=== PATIENT | male | born 1995 | race Hispanic/Latino ===

== ENCOUNTER 2020-05-02 19:49 | Observation (INO) | payer OTHER, SELFPAY ==
[~2020-05-02 19:49] MED LIST: Iopamidol-370 76% 500 ML 1 ML ONE
[2020-05-02 20:13] LABS: #Lymphocytes 0.8 thou/uL (1.20-3.40); #Monocytes 0.5 thou/uL (0.11-0.59); #Neutrophils 13.4 thou/uL (1.40-6.50); %Basophils 0.2 % (0.0-1.0); %Eosinophils 0.2 % (0.0-10.0); %Lymphocytes 5.4 % (21.0-51.0); %Monocytes 3.6 % (0.0-10.0); %Neutrophils 90.6 % (42.0-75.0); Hemoglobin 15.3 g/dL (14.0-18.0); Mean Corpuscular HGB CONC 32.9 g/dL (32.0-36.0); Mean Corpuscular Hemoglobin 28.3 pg (27.0-31.0); Mean Corpuscular Volume 86.1 fL (78.0-98.0); Mean Platelet Volume 7.7 fL (7.4-10.4); Platelet Count 267 thou/uL (130-400); RBC Distribution Width 11.9 % (11.5-14.5); Red Blood Cell (RBC) Count 5.39 mill/uL (4.70-6.10); White Blood Cell (WBC) Count 14.8 thou/uL (4.8-10.8)
[2020-05-02] MEDS ORDERED: Ondansetron ODT 8 MG TAB ONE (20:13)
[2020-05-02 20:32] LABS: ALT (SGPT) 21 U/L (8-55); AST (SGOT) 18 U/L (5-34); Albumin 4.8 g/dL (3.5-5.0); Alkaline Phosphatase 115 U/L (40-110); Anion Gap 13 mmol/L (10-20); BUN (Urea Nitrogen) 14 mg/dL (8.9-20.6); Bilirubin, Total 0.4 mg/dL (0.2-1.2); Calc. Creatinine Clearance 0 mL/min (70-130); Calcium 9.7 mg/dL (7.8-10.44); Carbon Dioxide 24 mmol/L (22-29); Chloride 101 mmol/L (98-107); Estimated GFR-MDRD Greater than 90; Globulin 3.4 g/dL (2.4-3.5); Glucose 127 mg/dL (70-105); Lipase 7 U/L (8-78); Potassium 3.9 mmol/L (3.5-5.1); Protein, Total 8.2 g/dL (6.0-8.3); Sodium 134 mmol/L (136-145)
--- NOTE | 2020-05-02 21:37 | CT ---
CT ABDOMEN AND PELVIS WITH IV CONTRAST: 05/02/20 HISTORY: Nausea and vomiting with generalized abdominal cramping. COMPARISON: None. FINDINGS: There is mild dependent atelectasis. The liver, spleen, pancreas, bilateral adrenal glands, kidneys, abdominal aorta and urinary bladder d emonstrate a normal CT appearance. A few scattered colonic diverticula are seen. Loops of small bowel are normal in caliber. The appendix is dilated and fluid-filled. The appendix measures 9 mm in diameter. There is minimal ad jacent periappendiceal inflammatory changes. Findings are thought to be related to early acute append icitis. There is increased number of lymph nodes in the right lower quadrant probably reactive in origin. No free fluid, fluid collection, or free intraperitoneal gas is seen in the abdomen or pelvis. Incidental note is made of a retroaortic left renal vein. IMPRESSION: 1. Evidence of early acute appendicitis. 2. Above findings discussed with Dr. Gordillo in the Emergency Department on 05/02/2020 at [address] [facility] [address]. POS: ALYSSA
[2020-05-02] MEDS ORDERED: Piperacillin/Tazobactam 3.375 GM VIAL ONE (22:04)
[2020-05-02] MEDS ORDERED: Midazolam HCl 2 mg/2 ml Vial ONE (22:05)
[2020-05-02] MEDS ORDERED: Fentanyl 100 MCG/2 ML VIAL ONE (22:05)
[2020-05-02 22:25] LABS: Bilirubin Negative (Negative); Blood, Urine Negative (Negative); Clarity Clear (Clear); Glucose, Urine (Dipstick) Normal (Negative); Ketone, Urine Negative (Negative); Leukocyte Negative Leu/uL (Negative); Nitrite Negative (Negative); Protein, Urine (Dipstick) 10 mg/dL (Neg-Trace); Urobilinogen Normal mg/dL (Less than 2)
[2020-05-02] MEDS ORDERED: Morphine 2 MG/ML SYRINGE ONE (23:16)
[2020-05-03] MEDS ORDERED: Ondansetron ODT 4 MG TAB SL PRN (00:06)
[2020-05-03] MEDS ORDERED: Ondansetron PF 4 MG/2 ML Vial IVP PRN (00:06)
[2020-05-03] MEDS ORDERED: Morphine 2 MG/ML VIAL SLOW IVP PRN ×2 (00:10→10:39)
[2020-05-03] MEDS: Sodium Chloride 0.9% 1,000 ML IV SCH ×2 (00:27→10:14)
[2020-05-03] MEDS ORDERED: Piperacillin/Tazobactam 3.375 GM in Sodium Chloride 0.9% 100 ML IVPB SCH ×2 (04:00→16:00)
[2020-05-03] MEDS ORDERED: Bupivacaine 0.25% HCL 30 ML VIAL ONE (08:20)
[2020-05-03] MEDS ORDERED: Lidocaine 1% w/Epinephrine 1:100K 20 ML VIAL ONE (08:20)
[2020-05-03] MEDS ORDERED: Sodium Chloride 0.9% 100 ML ONE (08:35)
[2020-05-03] MEDS ORDERED: Piperacillin/Tazobactam 3.375 GM VIAL ONE (08:35)
[2020-05-03] MEDS ORDERED: Lidocaine 1% PF 5 ML VIAL ONE (09:07)
[2020-05-03] MEDS ORDERED: Ondansetron PF 4 MG/2 ML Vial ONE (09:07)
[2020-05-03] MEDS ORDERED: Dexamethasone 20 MG/5 ML VIAL ONE (09:07)
[2020-05-03] MEDS ORDERED: Succinylcholine Chloride 20 MG/ML 10 ml SYRINGE FS ONE (09:07)
[2020-05-03] MEDS ORDERED: Glycopyrrolate 0.2 MG/ML 5 ML SYRINGE ONE (09:07)
[2020-05-03] MEDS ORDERED: Rocuronium Bromide 10 MG/ML (10ML VIAL) ONE (09:07)
[2020-05-03] MEDS ORDERED: Ketorolac Tromethamine 30 MG/ML VIAL ONE (09:07)
[2020-05-03] MEDS ORDERED: PROPOFOL 200 MG/20 ML VIAL ONE (09:07)
[2020-05-03] MEDS ORDERED: Fentanyl 100 MCG/2 ML VIAL ONE ×2 (09:15→09:52)
--- NOTE | 2020-05-03 09:29 | HP ---
CHIEF COMPLAINT: Abdominal pain. HISTORY OF PRESENT ILLNESS: Mr. Parsons is a 24-year-old man, who presented to the emergency room last night with abdominal pain, which came on around 1:00 in the afternoon. He states that the pain came on fairly rapidly and he threw up what he had eaten and some yellow liquids, but this did not relieve the pain. He states that the pain was all over, but when asked to indicate the point of greatest tenderness, he points to the right of his umbilicus. He denies any fevers or chills. He states that he has had similar episodes in the past, maybe up to 3 times, but none this severe. After receiving pain medication and antibiotics in the emergency room, his pain is better this morning. He states that the only thing that helps was lying very still. No exacerbating factors were identified. PAST MEDICAL HISTORY: None. PAST SURGICAL HISTORY: None. FAMILY HISTORY: None. REVIEW OF SYSTEMS: Ten system review of systems is negative except per HPI. SOCIAL HISTORY: No alcohol, drug, or tobacco use. MEDICATIONS: No medications. ALLERGIES: NO ALLERGIES. PHYSICAL EXAMINATION: VITAL SIGNS: The patient is afebrile with normal vital signs. GENERAL: Reveals a healthy young man, in no acute distress. HEENT: Normal. NECK: Supple without lymphadenopathy or thyroid nodules. He does not have any jaundice or icterus. HEART: Regular in its rate and rhythm without murmurs, rubs, or gallops. LUNGS: Clear to auscultation bilaterally. ABDOMEN: Soft and nondistended. He does not have any palpable masses or hernias. He is tender to palpation more in the right lower quadrant than right upper quadrant and left lower quadrant. He is nontender in the left upper quadrant. He does not exhibit rigidity, rebound, or guarding. EXTREMITIES: Warm and well perfused without edema. NEUROLOGIC: No focal deficits. PSYCHIATRIC: Alert, oriented, and appropriate. He is answering questions through a Divehi process lead. LABORATORY DATA: White count is mildly elevated, but other labs are unremarkable. IMAGING DATA: CT images are reviewed and I agree with the written report. He has a dilated appendix with some periappendiceal stranding, consistent with acute appendicitis. ASSESSMENT: Appendicitis. PLAN: Laparoscopic appendectomy. The patient has received Zosyn and IV fluids and has been n.p.o. since his arrival in the emergency room. The diagnosis and recommended treatment were discussed with him and he wants to proceed with surgery. Inherent risks of surgery were discussed. These include, but are not limited to, bleeding, infection, risks of anesthesia, damage to nearby structures including bowel, bladder, and blood vessels, need for open surgery, and need for additional procedures. He understands and accepts these risks and wishes to proceed. Job ID: [id number]
[2020-05-03] MEDS ORDERED: HYDROcodone/Acetaminophen 5/325 mg Tablet PO PRN ×2 (10:39)
[2020-05-03] MEDS ORDERED: Ibuprofen 800 MG TAB PO PRN (10:39)
[2020-05-03] MEDS ORDERED: Ibuprofen 600 MG TAB PO PRN (10:39)
[2020-05-03] MEDS ORDERED: Acetaminophen 325 MG TAB PO PRN ×2 (10:39)
[2020-05-03] MEDS ORDERED: Morphine 4 MG/ML VIAL SLOW IVP PRN (10:39)
[2020-05-03] MEDS ORDERED: traMADol HCl 50 MG TAB PO PRN ×2 (10:39)
[2020-05-03] MEDS ORDERED: Ibuprofen 200 MG TAB PO PRN (10:39)
[2020-05-03] MEDS ORDERED: D5 1/2 NS w/20 mEq KCL 1,000 ML IV SCH (10:45)
[2020-05-03] MEDS ORDERED: Promethazine HCl 25 MG/ML VIAL SLOW IVP PRN (10:52)
[2020-05-03] MEDS ORDERED: PACU-Morphine 4MG/ML VIAL SLOW IVP PRN (10:52)
[2020-05-03] MEDS ORDERED: Meperidine HCl/PF 25 MG/ML VIAL SLOW IVP PRN (10:52)
[2020-05-03] MEDS ORDERED: Promethazine HCl 25 MG/ML VIAL IM PRN (10:52)
[2020-05-03 11:30] VITALS: TEMP 98.3
[2020-05-03 13:17] LABS: SARS-CoV-2 MS2 Positive; SARS-CoV-2 N Gene Negative; SARS-CoV-2 S Gene Negative; SARS-CoV-2 by NAA Not Detected (NotDetected); SARS-CoV-2 orf1ab Negative
[2020-05-03 13:22] VITALS: BP 104/59
--- NOTE | 2020-05-03 14:12 | PDOC.OP ---
Operative Note - Operative Note Operative Note: PROCEDURE: Laparoscopic appendectomy. SURGEON: Teresa Moody M.D. DATE OF PROCEDURE: 05/03/2020 PREOPERATIVE DIAGNOSIS: Appendicitis. POSTOPERATIVE DIAGNOSIS: Appendicitis. HISTORY: 29-year-old man who presented with signs and symptoms concerning for appendicitis. CT scan showed evidence of acute appendicitis. DESCRIPTION OF PROCEDURE: After informed consent was obtained and appropriate antibiotics continued, the patient was taken to the operating room and placed in the supine position and general endotracheal anesthesia was administered. The bladder was decompressed with a Granger catheter and the abdomen was prepped and draped in the standard sterile fashion. Local anesthesia was infused to the skin and subcutaneous tissues superior to the umbilicus. A transverse skin incision was made and a Veress needle placed into the abdominal cavity and carbon dioxide gas insufflated without difficulty. Opening pressure was less than 5. Carbon dioxide gas was insufflated to an intra-abdominal pressure 15 and the patient tolerated this well. The Veress needle was withdrawn and a Elderon port advanced under direct laparoscopic vision into the abdominal cavity. Two additional ports were placed in the suprapubic and left lateral abdomen under direct laparoscopic vision after local anesthesia was infused at these sites. There were no significant adhesions. The appendix was identified and appeared inflamed but not perforated. The appendix was grasped by the mesoappendix and elevated. The mesoappendix was then sequentially ligated and divided down to the base of the appendix, which was normal in appearance and was clearly seen to be at the confluence of the tenia. Two Endoloops were placed around the base of the appendix and the appendix was divided between these Endoloops, placed into an EndoCatch bag and drawn out through the suprapubic incision. The suprapubic trocar was then replaced and the operative site was easily irrigated to clear. The suprapubic trocar was removed and the fascia closed under direct laparoscopic vision with a 0 Vicryl suture on a GraNee needle with excellent technical result. The left lateral trocar was then removed and hemostasis verified. Carbon dioxide gas was desufflated through the umbilical trocar which was then removed. Due to the patient's thin body habitus the fascia at the umbilicus was visible and was closed with a 0 Vicryl suture on a UR 6 needle under direct vision with excellent technical result. The skin incisions were irrigated and additional local anesthesia infused at each site. The skin was closed with 4-0 subcuticular Monocryl sutures and Dermabond dressings were placed. The patient was extubated and taken to the recovery room in good condition. Estimated blood loss was minimal. There were no complications. SPECIMEN: Appendix.
== END 2020-05-03 15:05 | disposition home or self-care (01) ==
LOC: ERS 19:49 → 3SE 21:54 → INTOOBSV 21:54
PROVIDERS: ADMIT Surgery; ATTEND Surgery
PROC: 0DTJ4ZZ Resection of Appendix, Percutaneous Endoscopic Approach (ICD-10-PCS; principal; 2020-05-03)
DX: K35.80 Unspecified acute appendicitis (principal); Z20.828 Contact with and (suspected) exposure to other viral communicable diseases
CPT/HCPCS: 36415; 74177; 80053; 81003; 83690; 85025; 87635; 88304; 96361; 96365; 96375; J1100; J1885; J2250; J2270; J2405; J2543; J2704; J3010; J3490; Q0162; Q9967; S0020; U0003